=== PATIENT | male | born 1995 | race African-American/Black ===

== ENCOUNTER 2020-04-10 12:26 | Observation (INO) | payer SELFPAY ==
[2020-04-10] VITALS (9 sets, daily range): BP systolic 133–149; BP diastolic 84–95; PULSE 74–107; RESP 16–19; TEMP 36.6–37.9; O2SAT 98–100; BMI 23.9
--- NOTE | ~2020-04-10 | CT_ITS ---
EXAMINATION: CT soft tissue neck w con EXAM DATE: 04/10/2020 14:41 INDICATION: Right-sided jaw pain, swelling. TECHNIQUE: Spiral CT of the neck was performed following intravenous injection of 75 mL Omnipaque 350 . Axial, coronal and sagittal images were reviewed. The dose-length product (DLP) for this examinat ion was 455.53 mGy-cm. The exposure was tailored according to patient size (auto mA exposure control ), and iterative reconstruction (ASIR) was used as additional dose reduction technique. There is no prior study for comparison. FINDINGS: There is extensive edema underneath the mandible, along the superficial and deep cervical f ascial planes more on the right side than left. There is large cavity in the right lower posterior mo st molar, but underlying etiology for this extensive swelling is not definitively identified. There i s mild fat stranding the right parapharyngeal fat, but normal prevertebral thickness, no evidence of drainable abscess identified. Additionally, the opacified vasculature including the internal jugular veins are enhancing normally, patent. Some submandibular lymph nodes upper limits of normal in size. Some edema involves the pharynx more on the right side, with effacement of the right vallecula compar ed to the aerated left vallecula. The epiglottis is normal in thickness. The thyroid gland is unremar kable. The submandibular and parotid glands are symmetric. The superior mediastinum is unremarkab le. Parapharyngeal and pre-glottic fat planes are preserved. The orbits are unremarkable. Visua lized sinuses and mastoid air cells are well aerated. There is cervical spondylosis. IMPRESSION: Extensive cervical edema, both superficial and deep planes involved, effacement of the ri ght vallecula from edema, but normal epiglottis thickness and airway appears widely patent. Could be odontogenic origin given right lower molar cavity. No drainable abscess identified. Reviewed, dictated and finalized at location A. IMPRESSION: Extensive cervical edema, both superficial and deep planes involved , effacement of the right vallecula from edema, but normal epiglottis thickness and airway appears widely patent. Could be odontogenic origin given right lowe r molar cavity. No drainable abscess identified.
[2020-04-10] MEDS: FAMOTIDINE 20 MG/2 ML VIAL IV PUSH ×2 (14:07→21:25)
[2020-04-10] MEDS: DEXAMETHASONE SOD PHOS INJ 4 MG/ML VIAL 10 MG IV PUSH (14:07)
[2020-04-10 14:08] LABS: Basophils Absolute Auto 0.1 K/mm3 (0.0-0.1); Basophils Percent Auto 0.2 % (0.2-1.2); Hematocrit 44.8 % (42.0-52.0); Hemoglobin 15.9 g/dL (14.0-18.0); Immature Granulocyte Absolute 0.16 K/mm3 (0.00-0.031); Immature Granulocyte Percent A 0.7 % (0-0.5); Lymphocytes Absolute Auto 0.92 K/mm3 (0.9-3.2); Lymphocytes Percent Auto 4.1 % (18.3-44.2); Mean Corpuscular HGB Conc 35.5 g/dl (32-36); Mean Corpuscular Hemoglobin 29.2 pg (26-34); Mean Corpuscular Volume 82.4 fl (80-100); Mean Platelet Volume 9.4 fl (7.4-10.4); Monocytes Absolute Auto 2.4 K/mm3 (0.1-0.6); Monocytes Percent Auto 10.7 % (2.6-8.5); Neutrophils Absolute Auto 18.8 K/mm3 (1.3-6.7); Neutrophils Percent Auto 84.3 % (45.5-73.1); Platelet Count Result 221 k/mm3 (150-375); Red Blood Count 5.44 M/mm3 (4.6-6.20); Red Cell Distribution Width 13.4 % (11.5-14.5); White Blood Count 22.3 K/mm3 (4.5-10.0)
[2020-04-10] MEDS: IBUPROFEN IV 800 MG/200 ML 800 MG/200 ML BAG 400 MG IVPB (14:08)
[2020-04-10] MEDS: SODIUM CHLORIDE 0.9% IV 1,000 ML 999 ML IV CONT (14:10)
[2020-04-10 14:26] LABS: Anion Gap 9 mmol/L (8-16); Blood Urea Nitrogen 12 mg/dL (9-20); Calcium 9.6 mg/dL (8.4-10.2); Carbon Dioxide 31 mmol/L (22-30); Chloride 99 mmol/L (98-107); Estimated CRCL calculation 103 ml/min; Estimated Glomerular Filt Rate > 60; Glucose 97 mg/dL (75-110); Potassium 4.8 mmol/L (3.4-5.0); Sodium 139 mmol/L (137-145)
[2020-04-10 14:36] LABS: CRP 19.7 mg/dL (<1.0)
[2020-04-10] MEDS: CLINDAMYCIN 900 MG/NS 50 ML 900 MG/50 ML PIGGYBACK 50 MG IVPB ×2 (14:49→21:26)
--- NOTE | 2020-04-10 14:51 | ED.DENTAL ---
HPI - Dental/Oral General Chief complaint: Dental/Oral Stated complaint: tooth ache Time Seen by Provider: 04/10/20 13:01 Source: patient Mode of arrival: ambulatory Limitations: no limitations History of Present Illness HPI Narrative: Patient is a 24-year-old male who presents to emergency department for evaluation of dental pain to the right posterior molar with swelling of the face and submental region that began over the last day patient is not been seen for this complaint pain is worse with eating and swallowing. Patient notes subjective fever with chills and sweats. Patient denies vomiting diarrhea or other URI symptoms other than a mild cough Related Data Home Medications Medication Instructions Recorded Confirmed No Home Medications 04/10/20 04/10/20 Allergies Allergy/AdvReac Type Severity Reaction Status Date / Time No Known Allergies Allergy Verified 04/10/20 12:40 Review of Systems Review of Systems: All systems reviewed & are unremarkable except as noted in HPI and below PMFSH Social History Social History (Updated 04/10/20 @ 14:58 by Isaiah Fuentes PA-C) Smoking status: Current every day smoker Exam Narrative: Exam Narrative: GENERAL: Well-appearing, well-nourished, and in no acute distress. HEAD: Normocephalic, atraumatic. Swelling to the right cheek and submental region that is soft and nonfluctuant and without erythema EYES: PERRLA and EOMI. ENT: Nares clear, no rhinorrhea or epistaxis. Mucous membranes moist. Oropharynx without tonsillar hypertrophy exudate or other. No drainable lesions along the gumline's there is some irritation in the right posterior molar region on the other gums the floor of the mouth is soft patient does have difficulty opening the mouth. Uvula is midline NECK: Supple. Anterior adenopathy noted CHEST: Clear to auscultation. No respiratory distress. No wheezes rales or rhonchi HEART: Regular rate and rhythm. No murmur heard. EXTREMITIES: Normal range of motion. No edema. SKIN: Warm, dry, no rash. NEURO: No focal deficits. Alert and oriented x3. PSYCH: Normal mood and affect. Course Course Emergency Course: Patient was given medications with marked improvement able to open the mouth patient will be placed in hospital kept overnight discussed case with ENT and hospitalist service who have agreed to accept the patient patient in the room in no distress at this time agreeing to stay in hospital was hydrated given antibiotics steroids and other medications Consultations Consultation #1: Spoke with Dr. Celestine HENAO who recommends keeping the patient overnight to observe no drainable abscesses at this time. Recommend steroids and antibiotics fluids Date: 04/10/20 Time: 16:18 Consultation #2: Discussed case with hospitalist service who is agreed to accept the patient Date: 04/10/20 Time: 16:19 Vital Signs Vital signs: Vital Signs Temperature 97.9 F 04/10/20 12:36 Pulse Rate 107 H 04/10/20 12:36 Respiratory Rate 19 04/10/20 12:36 Blood Pressure 134/88 04/10/20 12:36 Pulse Oximetry 100 04/10/20 12:36 Temperature 97.9 F 04/10/20 14:08 Pulse Rate 107 H 04/10/20 12:36 Respiratory Rate 19 04/10/20 12:36 Blood Pressure 134/88 04/10/20 12:36 Pulse Oximetry 100 04/10/20 12:36 MDM - Dental/Oral MDM Narrative Medical decision making narrative: Patient will be kept in hospital for treatment of his symptoms no abscess that is obviously drainable at this time patient had marked improvement with medications and is felt appropriate for inpatient treatment Lab Data Result diagrams: 04/10/20 13:59 04/10/20 13:59 Labs: Lab Results 04/10/20 04/10/20 Range/Units 13:59 13:59 WBC 22.3 H (4.5-10.0) K/mm3 RBC 5.44 (4.6-6.20) M/mm3 Hgb 15.9 (14.0-18.0) g/dL Hct 44.8 (42.0-52.0) % MCV 82.4 (80-100) fl MCH 29.2 (26-34) pg MCHC 35.5 (32-36) g/dl RDW 13.4 (11.5-14.5) % Plt Count 221
[2020-04-10] MEDS: LACTATED RINGERS 1,000 ML 125 ML IV CONT (17:31)
--- NOTE | 2020-04-10 17:41 | ADMGEN ---
This patient, Adela Perla, was admitted to 2 Medical Room 250-01. Patient/family oriented to hospital policies and general routines including ID bracelet, bed and alarms, visiting hours, pain management, procedures, bathroom and other care routines, personal items, smoking policy, room service/diet, and visiting hours. Information on how to activate the Rapid Response Team has been discussed. Patient/Family are encouraged to report perceived risks to care and to ask questions if they do not understand what they are told or what they should do.
--- NOTE | 2020-04-10 23:57 | PM.IMHP ---
H&P: HPI History of Present Illness Date/Time: 04/10/20 23:57 Chief complaint: facial and neck cellulitis Narrative: Adela Perla is a 24 year old male no prior medical history. He takes no home medications. The patient tells me that he. The patient came to the emergency room today for evaluation of dental pain in the right lower jaw line. He noticed some swelling of his face this morning and could not move his mouth. Patient was not able to smile due to the edema. He has fever and chills but did not check his temperature. He had no cough. No vomiting or diarrhea. No upper respiratory symptoms. His white count was noted to be 22.3. Patient was started on clindamycin. Scan of the soft tissue neck was read as extensive cervical edema both superficial and deep planes involved, effacement of the right vallucella from edema, but normal epiglottis thickness and airway appears widely patent. Could be odontogenic origin given right lower molar cavity. No drainable abscess identified. We have no oral surgeon here however read he has ENT and recommended steroids and antibiotics. The patient was started on Decadron and clindamycin. Dr. Sprague ENT recommends keeping the patient overnight to observe and recommended steroids and antibiotics as well as IV fluids. Patient was started on clindamycin Decadron and IV fluids. Ibuprofen and Pepcid as well. Patient is admitted as observation to medical floor date of service is 04/10/2020 Review of Systems Review of Systems: All systems reviewed & are unremarkable except as noted in HPI and below Constitutional: Constitutional: Reports as per HPI and Reports no additional constitutional complaints Eyes: Eyes: Reports as per HPI and Reports no additional eye complaints ENT: Reports system reviewed and no additional complaints, except as documented and Reports Normal hearing present Cardiovascular: Cardiovascular: Reports no additional cardiovascular complaints Respiratory: Respiratory: Reports no additional respiratory complaints and Reports no additional respiratory complaints Gastrointestinal: Gastrointestinal: Reports as per HPI and Reports no additional gastrointestinal complaints Musculoskeletal: Musculoskeletal: Reports no additional musculoskeletal complaints Integumentary/Breasts: Skin/Breast: Reports system reviewed and no additional complaints, except as docu and Reports as per HPI Neurologic: Reports system reviewed and no additional complaints, except as documented, Reports as per HPI and Reports Normal hearing present Psychiatric: Psychiatric: Reports no additional psychiatric complaints and Reports as per HPI Endocrine: Endocrine: Reports no additional endocrine complaints Hematologic/Lymphatic: Hematologic/Lymphatic: Reports no additional hematologic/lymphatic complaints Allergic/Immunologic: Allergic/Immunologic: Reports no additional allergic/immunologic complaints [facility], [facility] Past Medical History Medical History (Updated 04/11/20 @ 00:10 by Snow Ignacio NP) History of lumbar puncture History of meningitis Surgical History Surgical History (Updated 04/11/20 @ 00:10 by Snow Ignacio NP) No history of previous surgery Family History Family History (Updated 04/11/20 @ 00:11 by Snow Ignacio NP) Mother Hypertension Father Osteoarthritis Social History Social History (Updated 04/11/20 @ 00:12 by Snow Ignacio NP) Social History: The patient smokes a pack a cigarettes in 2 days. Occasionally drinks alcohol. He uses marijuana. No other illicit drugs. He has a significant other he has a 2-year-old and another child on the way. The patient was born in [place] and travels around moving furniture. He desires to be a full code. And his mother is a nurse in [place] and she is the durable power deputy attorney general for healthcare. Years smoked: 9 Smoking status: Current every day smoker Tobacco type: cigarettes Alcohol intake: never Substance use: cur
[2020-04-11] MEDS: DEXAMETHASONE SOD PHOS INJ 4 MG/ML VIAL IV PUSH ×3 (00:54→12:04)
[2020-04-11 02:23] LABS: Basophils Percent Auto 0.1 % (0.2-1.2); Hematocrit 38.5 % (42.0-52.0); Hemoglobin 13.8 g/dL (14.0-18.0); Immature Granulocyte Absolute 0.18 K/mm3 (0.00-0.031); Immature Granulocyte Percent A 0.8 % (0-0.5); Lymphocytes Percent Auto 2.3 % (18.3-44.2); Mean Corpuscular HGB Conc 35.8 g/dl (32-36); Mean Corpuscular Hemoglobin 29.1 pg (26-34); Mean Corpuscular Volume 81.1 fl (80-100); Mean Platelet Volume 9.4 fl (7.4-10.4); Monocytes Absolute Auto 2.2 K/mm3 (0.1-0.6); Monocytes Percent Auto 10.1 % (2.6-8.5); Neutrophils Absolute Auto 18.4 K/mm3 (1.3-6.7); Neutrophils Percent Auto 86.7 % (45.5-73.1); Platelet Count Result 226 k/mm3 (150-375); Red Blood Count 4.75 M/mm3 (4.6-6.20); White Blood Count 21.3 K/mm3 (4.5-10.0)
[2020-04-11 02:41] LABS: Anion Gap 7 mmol/L (8-16); Blood Urea Nitrogen 11 mg/dL (9-20); Calcium 9.2 mg/dL (8.4-10.2); Carbon Dioxide 28 mmol/L (22-30); Chloride 103 mmol/L (98-107); Estimated CRCL calculation 117 ml/min; Estimated Glomerular Filt Rate > 60; Glucose 118 mg/dL (75-110); Sodium 138 mmol/L (137-145)
[2020-04-11 02:50] LABS: CRP 20.1 mg/dL (<1.0)
[2020-04-11] MEDS: LACTATED RINGERS 1,000 ML 125 ML IV CONT ×2 (03:13→12:03)
[2020-04-11] MEDS: CLINDAMYCIN 900 MG/NS 50 ML 900 MG/50 ML PIGGYBACK 50 MG IVPB (05:32)
[2020-04-11 05:42] VITALS: BP 161/85; PULSE 75; RESP 16; TEMP 37.1; O2SAT 99
[2020-04-11] MEDS: FAMOTIDINE 20 MG/2 ML VIAL IV PUSH (08:13)
[2020-04-11 14:00] VITALS: BP 146/91; PULSE 84; RESP 16; TEMP 37.3; O2SAT 100
[2020-04-11] MEDS: CLINDAMYCIN 900 MG/D5W 50 ML 900 MG/50 ML PIGGYBACK 50 MG IVPB (14:28)
--- NOTE | 2020-04-11 16:02 | PM.DS ---
DS: Admitting Diagnosis Admitting Diagnosis Admitting Diagnosis: facial and neck cellulitis DS: Discharge Diagnosis Discharge Diagnosis (1) Facial swelling: Code(s): R22.0 - Localized swelling, mass and lump, head Status: Acute Assessment and Plan: Date of Admission 04/10/20 Date of Discharge/ DOS 04/11/20 Mr. Perla is a very pleasant 24yo M from [place] traveling in the area for work who presented to the ED for evaluation of acute facial swelling. He described having some right lower tooth pain recently and had made an appointment to see a dentist once he got back home. While traveling here out of town he developed swelling to bilateral cheeks and under chin, worse on right. CT on arrival showed extensive soft tissue swelling without evidence of abscess. He was observed overnight and treated with IV dexamethasone and IV clindamycin. He noted market improvement the following day and was eager to discharge to catch a flight back home. He was hemodynamically stable for discharge on 04/11/20 with a tapered course of methylprednisolone and a course of clindamycin. He was encouraged to follow up with his primary care provider as well as a dentist as soon as possible once he returned to [place], or return to an ED if he noticed worsening in his condition or trouble breathing. (2) Dental caries: Code(s): K02.9 - Dental caries, unspecified Status: Acute Assessment and Plan: Follow up with dentist YUN. DS: Summary Time Spent with Patient Time attestation: Total time spent providing and/or coordinating discharge services: 40 minutes Exam Narrative: Exam Narrative: General: Well-appearing male resting comfortably sitting up in bed in no acute distress. HEENT: Diffuse soft tissue swelling under jaw and BLAKE cheeks, worse on right, EOMI, oral mucosa moist, oropharynx clear. Cardiovascular: Rate and rhythm are regular. Respiratory: Lungs clear to auscultation all hernandez. Respirations even and nonlabored. Abdomen: Soft, non-tender, non-distended, bowel sounds present. Extremities: Peripheral pulses intact. No edema. Neuro: No focal neurological deficits. Speech is clear. DS: Data Data Completed and Pending Labs on day of discharge: Last Vital Signs Temp 99.2 F 04/11/20 14:00 Pulse 84 04/11/20 14:00 Resp 16 04/11/20 14:00 BP 146/91 H 04/11/20 14:00 Pulse Ox 100 04/11/20 14:00 ITS Impressions Soft Tissue Neck CT 04/10/20 14:44 IMPRESSION: Extensive cervical edema, both superficial and deep planes involved, effacement of the right vallecula from edema, but normal epiglottis thickness and airway appears widely patent. Could be odontogenic origin given right lower molar cavity. No drainable abscess identified. Laboratory Tests 04/11/20 02:05 04/11/20 02:05 Discharge Plan Discharge Attending physician on discharge: Rubin Cesar Consulting providers: Cris Mendez ; Isaiah Fuentes ; Snow Ignacio ; Darrin Snow ; Babs Hebert Discharging Clinician: Babs Hebert Anticipated Discharge Date/Time: 04/11/20 15:26 Patient Disposition: Home, Self-Care Activity: as tolerated Diet: as tolerated Discharge Instructions: Call to schedule a follow up appointment as soon as possible with your dentist and your primary care provider. Continue taking antibiotics and steroids as prescribed until they are gone, even when you begin to feel better. Recommend a soft diet of mostly liquids and other soft foods such as jello, pudding, soups until your swelling improves more. Continue to monitor your symptoms and seek medical care right away if your swelling is worsening or you can't breathe. Return to ER if you have concerning symptoms including chest pain, feeling like you can't breathe, or persistent fevers > 101F. In light of the current Coron
== END 2020-04-11 16:48 | disposition home or self-care (01) ==
LOC: ANHED 16:30 → ANH2MED 17:01
PROVIDERS: Emergency Medicine Emergency Medical Services; Admitting Provider Internal Medicine; Emergency Provider Emergency Medicine; Visit Provider Physician Assistant
DX: L03.211 Cellulitis of face (principal); K02.9 Dental caries, unspecified; F17.210 Nicotine dependence, cigarettes, uncomplicated; R22.0 Localized swelling, mass and lump, head
CPT/HCPCS: 36415; 70491; 80048; 85025; 86140; 87040; 96361; 96365; 96366; 96367; 96375; 96376; 99285; G0378; G0379; J0131; J1100; J1741; J7030; J7120; Q9967